=== PATIENT | male | born 1980 | race Caucasian/White ===

== ENCOUNTER 2019-03-24 14:51 | Emergency (ER) | payer MEDICAID ==
[~2019-03-24] VITALS: Ht 175.3 cm; Wt 121.1 kg
[2019-03-24 14:52] VITALS: BP 153/101
[2019-03-24] MEDS ORDERED: KETOROLAC 30 MG/1 ML ONE (15:15)
[2019-03-24] MEDS ORDERED: HYDROcodone/APAP 5/325 TABLET ONE (15:15)
[2019-03-24] MEDS ORDERED: KETOROLAC 30 MG/1 ML IM ONE (15:30)
[2019-03-24] MEDS ORDERED: HYDROcodone/APAP 5/325 TABLET PO ONE (15:30)
[2019-03-24] MEDS ORDERED: ONDANSETRON ODT 4 MG ONE (15:34)
[2019-03-24] MEDS ORDERED: ONDANSETRON ODT 4 MG PO ONE (16:00)
== END 2019-03-24 16:01 | disposition home or self-care (01) ==
LOC: ED 15:46
DX: M16.12 Unilateral primary osteoarthritis, left hip (principal); M25.852 Other specified joint disorders, left hip; Z87.891 Personal history of nicotine dependence
CPT/HCPCS: 73502; 96372; 99283; J1885; Q0162

== ENCOUNTER 2019-03-30 11:46 | Emergency (ER) | payer MEDICAID ==
[~2019-03-30] VITALS: Ht 175.3 cm; Wt 120.0 kg
[2019-03-30 11:52] VITALS: BP 147/99
--- NOTE | 2019-03-30 13:55 | NUR ---
ASSISTANT ATTORNEY GENERAL: PT TO ROOM FROM LOBBY, NO ANSWER
--- NOTE | 2019-03-30 14:10 | NUR ---
FRONT OFFICE ADMINISTRATOR: CALLED FOR ROOM, NO ANSWER
--- NOTE | 2019-03-30 14:32 | NUR ---
GENERAL ROAD SUPERVISOR: CALLED FOR ROOM, NO ANSWER
== END 2019-03-30 14:33 | disposition left against medical advice (07) ==
LOC: ED 14:27
DX: M79.662 Pain in left lower leg (principal); Z53.21 Procedure and treatment not carried out due to patient leaving prior to being seen by health care provider

== ENCOUNTER 2019-04-03 21:15 | Inpatient (IN) | payer MEDICAID ==
[~2019-04-03] VITALS: Ht 175.3 cm; Wt 115.2 kg
--- NOTE | 2019-04-03 22:34 | NUR ---
IV ESTABLISHED, BLOOD CULTURES DRAWN X2.
[2019-04-03 22:43] LABS: MEAN CORPUSCULAR HEMOGLOBIN 29.2 pg (27.5-34.5); MEAN CORPUSCULAR HGB CONC 33.3 g/dL (33.2-36.2); MEAN CORPUSCULAR VOLUME 87.8 fL (81-97); MEAN PLATELET VOLUME 8.1 fL (7.4-10.4); PLATELET COUNT 422 x10^3/uL (130-400); RED BLOOD COUNT 4.53 x10^6/uL (4.38-5.82)
[2019-04-03 22:45] LABS: HCT (SEDRATE) 39.7 % (39.2-51.8)
[2019-04-03 22:54] LABS: ALBUMIN 2.3 g/dL (3.4-5.0); ANION GAP 8 mmol/L (5-15); CALCIUM 8.2 mg/dL (8.5-10.1); CHLORIDE 108 mmol/L (98-107); CREATININE 1.71 mg/dL (0.7-1.3)
[2019-04-03 22:57] LABS: BASOPHILS # (AUTO) 0.06 x10^3/uL (0-0.1); BASOPHILS % (AUTO) 0 % (0-1); EOSINOPHILS # (AUTO) 0.04 x10^3/uL (0-0.4); EOSINOPHILS % (AUTO) 0 % (1-7); LYMPHOCYTES # (AUTO) 1.95 x10^3/uL (1-3.4); LYMPHOCYTES % (AUTO) 10 % (22-44); MD SCAN; MONOCYTES # (AUTO) 1.19 x10^3/uL (0.2-0.8); MONOCYTES % (AUTO) 6 % (2-9); NEUTROPHILS # (AUTO) 16.02 x10^3/uL (1.8-6.8); NEUTROPHILS % (AUTO) 83 % (42-75)
--- NOTE | 2019-04-03 23:18 | NUR ---
PT RESTING ON GURNEY. DENIES ANY NEEDS. OFFERED BLANKET BUT DECLINES, STATES HE IS COMFORTABLE WITH THE SHEET PROVIDED. URINAL PROVIDED. PT STATES IT IS TOO PAINFUL TO WALK. VITALS STABLE. AWAITING LAB RESULTS, PT TO BE ADMITTED.
[2019-04-04] MEDS ORDERED: ONDANSETRON ODT 4 MG PO PRN
[2019-04-04] MEDS ORDERED: BISACODYL 10 MG SUPP PR PRN
[2019-04-04] MEDS ORDERED: hydrALAzine 20 MG/ML, 1ML IVPush PRN
[2019-04-04] MEDS ORDERED: POLYETHYLENE GLYCOL 17 GM PACKET PO PRN
[2019-04-04] MEDS ORDERED: ONDANSETRON 2MG/ML, 2ML IVPush PRN
[2019-04-04] MEDS ORDERED: PROMETHAZINE 25 MG/ML, 1ML IM PRN
[2019-04-04] MEDS ORDERED: DOCUSATE 100 MG CAPSULE PO PRN
--- NOTE | 2019-04-04 00:11 | NUR ---
REPORT RECEIVED, POC DISCUSSED, CARE ASSUMED. PT TO BE ADMITTED. HOSPITALIST AT BEDSIDE FOR ADMISSION ASSESSMENT. ROOM ASSIGNMENT PENDING.
--- NOTE | 2019-04-04 00:22 | NUR ---
REPORT TO AYAKA VERMA. PT TO BE ADMITTED TO ROOM 364. PT UPDATED ON POC.
[2019-04-04 00:51] VITALS: BP 144/96
[2019-04-04] MEDS: SODIUM CHLORIDE 0.9% 1,000 ML IV SCH ×3 (01:15→20:24)
[2019-04-04] MEDS: OXYcodone IR 5MG TABLET PO PRN ×2 (01:15→20:24)
[2019-04-04 01:37] LABS: FREE T4 (FREE THYROXINE) 1.2 ng/dL (0.76-1.46)
[2019-04-04 05:12] LABS: MEAN CORPUSCULAR HEMOGLOBIN 28.8 pg (27.5-34.5); MEAN CORPUSCULAR HGB CONC 32.5 g/dL (33.2-36.2); MEAN CORPUSCULAR VOLUME 88.6 fL (81-97); MEAN PLATELET VOLUME 7.8 fL (7.4-10.4); PLATELET COUNT 433 x10^3/uL (130-400); RED BLOOD COUNT 4.56 x10^6/uL (4.38-5.82); RED CELL DISTRIBUTION WIDTH 13.9 % (9.4-14.8)
[2019-04-04 05:23] LABS: ALBUMIN 2.2 g/dL (3.4-5.0); ANION GAP 6 mmol/L (5-15); CALCIUM 8.3 mg/dL (8.5-10.1); CHLORIDE 112 mmol/L (98-107)
[2019-04-04 05:34] LABS: ALANINE AMINOTRANSFERASE 52 U/L (12-78); ALKALINE PHOSPHATASE 76 U/L (45-117); BILIRUBIN,TOTAL 0.3 mg/dL (0.2-1.0); CHOL/HDL RATIO 5.8; CHOLESTEROL, TOTAL 138 mg/dL (140-239); CREATININE 1.61 mg/dL (0.7-1.3); HDL CHOL % 17 % (26-37); HDL CHOLESTEROL (DIRECT) 24 mg/dL (40-60); LDL CHOLESTEROL,CALCULATED 83 mg/dL (54-169); LDL/HDL RATIO 3.5 (0.5-3.0); TOTAL PROTEIN 6.9 g/dL (6.4-8.2); TRIGLYCERIDES 153 mg/dL (50-200); VLDL CHOLESTEROL 31 mg/dL (0-25)
[2019-04-04 05:43] LABS: BASOPHILS # (AUTO) 0.06 x10^3/uL (0-0.1); BASOPHILS % (AUTO) 0 % (0-1); EOSINOPHILS % (AUTO) 1 % (1-7); LYMPHOCYTES # (AUTO) 2.79 x10^3/uL (1-3.4); LYMPHOCYTES % (AUTO) 14 % (22-44); MD SCAN; MONOCYTES # (AUTO) 1.74 x10^3/uL (0.2-0.8); MONOCYTES % (AUTO) 9 % (2-9); NEUTROPHILS # (AUTO) 15.66 x10^3/uL (1.8-6.8); NEUTROPHILS % (AUTO) 77 % (42-75)
[2019-04-04] MEDS: morphine SULFATE 10 MG/ML, 1ML IVPush PRN ×4 (07:34→23:41)
[2019-04-04 09:26] VITALS: BP 172/98
[2019-04-04] MEDS ORDERED: GADOTERATE 10 MMOL/20 ML SYR ONE (14:17)
[2019-04-04] MEDS ORDERED: LIDOCAINE 1%, 10ML ONE (15:40)
[2019-04-04 15:45] VITALS: BP 162/111
[2019-04-04] MEDS ORDERED: FENTANYL PF 100 MCG/2ML ONE (16:07)
[2019-04-04] MEDS ORDERED: NALOXONE 1 MG/ML, 2ML ONE (16:08)
[2019-04-04] MEDS ORDERED: MIDAZOLAM 1 MG/ML, 5ML ONE (16:08)
[2019-04-04] MEDS ORDERED: FLUMAZENIL 0.1 MG/1 ML, 5ML ONE (16:08)
[2019-04-04 17:30] VITALS: BP 170/127
[2019-04-04] MEDS ORDERED: hydrALAzine 20 MG/ML, 1ML IV PRN ×2 (18:00→22:00)
[2019-04-04 18:29] VITALS: BP 162/108
[2019-04-04] MEDS: CEFTRIAXONE PMX 2GM/50ML 50 ML IV SCH (20:23)
[2019-04-04 20:28] LABS: MICROSCOPIC AUTO
[2019-04-04 20:29] LABS: CULTURE INDICATED? NO
[2019-04-05 01:21] VITALS: BP 165/96
[2019-04-05] MEDS: OXYcodone IR 5MG TABLET PO PRN ×2 (04:37→11:17)
[2019-04-05 05:31] LABS: MEAN CORPUSCULAR HEMOGLOBIN 29.1 pg (27.5-34.5); MEAN CORPUSCULAR HGB CONC 33.4 g/dL (33.2-36.2); MEAN CORPUSCULAR VOLUME 87.3 fL (81-97); MEAN PLATELET VOLUME 8.1 fL (7.4-10.4); PLATELET COUNT 433 x10^3/uL (130-400); RED BLOOD COUNT 4.66 x10^6/uL (4.38-5.82); RED CELL DISTRIBUTION WIDTH 13.9 % (9.4-14.8)
[2019-04-05 05:46] LABS: ANION GAP 6 mmol/L (5-15); CALCIUM 8.8 mg/dL (8.5-10.1); CHLORIDE 107 mmol/L (98-107)
[2019-04-05 05:47] LABS: CREATININE 1.67 mg/dL (0.7-1.3)
[2019-04-05 05:54] LABS: MD YES
[2019-04-05 05:55] LABS: <PLATELET ESTIMATE> ADEQUATE; <PLT MORPHOLOGY> NORMAL PLT MORPH; <RBC MORPHOLOGY> NORMAL; EOS#(MANUAL) 0.19 x10^3/uL (0.0-0.4); EOS% (MANUAL) 1 % (1-7); LYMPH#(MANUAL) 3.59 x10^3/uL (1-3.4); LYMPHS% (MANUAL) 19 % (22-44); MONOS#(MANUAL) 0.95 x10^3/uL (0.3-2.7); MONOS% (MANUAL) 5 % (2-9); SEG#(MANUAL) 14.18 x10^3/uL (1.8-6.8); SEGS% (MANUAL) 75 % (42-75)
[2019-04-05 07:02] VITALS: BP 147/94
[2019-04-05] MEDS: AMLODIPINE 5 MG TABLET PO SCH (08:45)
[2019-04-05] MEDS: SODIUM CHLORIDE 0.9% 1,000 ML IV SCH ×2 (11:12→21:46)
[2019-04-05 12:30] VITALS: BP 143/89
[2019-04-05] MEDS ORDERED: MIDAZOLAM 1 MG/ML, 2ML ONE ×2 (17:24→17:38)
[2019-04-05] MEDS ORDERED: FENTANYL PF 100 MCG/2ML ONE ×2 (17:24→19:02)
[2019-04-05] MEDS ORDERED: FENTANYL PF 250 MCG/5ML ONE (17:40)
[2019-04-05] MEDS ORDERED: SUCCINYLCHOLINE 20 MG/ML, 10ML ONE ×2 (17:41→17:50)
[2019-04-05] MEDS ORDERED: DEXAMETHASONE 4 MG/ML, 1ML ONE ×2 (17:45→17:50)
[2019-04-05] MEDS ORDERED: PROPOFOL 10 MG/ML, 20ML ONE (17:46)
[2019-04-05] MEDS ORDERED: ROCURONIUM 10 MG/ML,10ML ONE (17:50)
[2019-04-05] MEDS ORDERED: ONDANSETRON 2MG/ML, 2ML ONE (17:50)
[2019-04-05] MEDS ORDERED: ACETAMINOPHEN 325 MG TABLET PO PRN (19:00)
[2019-04-05] MEDS ORDERED: MEPERIDINE/PF 25MG/ML,1ML IVPush PRN (19:00)
[2019-04-05] MEDS ORDERED: ONDANSETRON 2MG/ML, 2ML IV PRN (19:00)
[2019-04-05] MEDS ORDERED: hydrALAzine 20 MG/ML, 1ML IV PRN (19:00)
[2019-04-05] MEDS ORDERED: MIDAZOLAM 1 MG/ML, 2ML IV PRN (19:00)
[2019-04-05] MEDS ORDERED: PROMETHAZINE 12.5 MG SUPP PR PRN (19:00)
[2019-04-05] MEDS ORDERED: ALBUTEROL SULFATE 2.5 MG/3 ML NPPB PRN (19:00)
[2019-04-05] MEDS ORDERED: DIAZEPAM 5 MG/ML, 2ML IVPush PRN (19:00)
[2019-04-05] MEDS ORDERED: ONDANSETRON ODT 8 MG PO PRN (19:00)
[2019-04-05] MEDS ORDERED: EPHEDRINE 50 MG/ML, 1ML IVPush PRN (19:00)
[2019-04-05] MEDS ORDERED: HALOPERIDOL 5 MG/ML IV PRN (19:00)
[2019-04-05] MEDS ORDERED: PROMETHAZINE 25 MG/ML, 1ML IV PRN (19:00)
[2019-04-05] MEDS ORDERED: OXYcodone 5 MG/5 ML ORAL.SOL UDC PO PRN (19:00)
[2019-04-05] MEDS ORDERED: LABETALOL 5MG/ML, 20ML IV PRN (19:00)
[2019-04-05] MEDS ORDERED: OXYcodone 5 MG/5 ML ORAL.SOL UDC ONE (19:02)
[2019-04-05] MEDS: FENTANYL PF 100 MCG/2ML IV PRN ×2 (19:06→19:56)
[2019-04-05] MEDS ORDERED: LABETALOL 5MG/ML, 20ML ONE (19:16)
[2019-04-05] MEDS ORDERED: HYDROmorphone 1 MG/ML, 1ML INJ ONE (19:16)
[2019-04-05] MEDS: HYDROmorphone 2 MG/ML, 1ML IVPush PRN ×2 (19:19→19:29)
[2019-04-05] MEDS ORDERED: hydrALAzine 20 MG/ML, 1ML ONE (19:45)
[2019-04-05] MEDS ORDERED: MEPERIDINE/PF 25MG/ML,1ML ONE (20:12)
[2019-04-05 20:43] VITALS: BP 143/83
[2019-04-05] MEDS: CEFTRIAXONE PMX 2GM/50ML 50 ML IV SCH (21:46)
[2019-04-05] MEDS: morphine SULFATE 10 MG/ML, 1ML IVPush PRN (22:09)
[2019-04-06 01:00] VITALS: BP 139/98
[2019-04-06] MEDS: SODIUM CHLORIDE 0.9% 1,000 ML IV SCH (03:00)
[2019-04-06 05:15] LABS: BASOPHILS % (AUTO) 1 % (0-1); EOSINOPHILS # (AUTO) 0.01 x10^3/uL (0-0.4); EOSINOPHILS % (AUTO) 0 % (1-7); LYMPHOCYTES # (AUTO) 0.88 x10^3/uL (1-3.4); LYMPHOCYTES % (AUTO) 5 % (22-44); MD NO; MEAN CORPUSCULAR HEMOGLOBIN 29.4 pg (27.5-34.5); MEAN CORPUSCULAR HGB CONC 33.8 g/dL (33.2-36.2); MEAN CORPUSCULAR VOLUME 87.1 fL (81-97); MEAN PLATELET VOLUME 8.1 fL (7.4-10.4); MONOCYTES # (AUTO) 0.48 x10^3/uL (0.2-0.8); MONOCYTES % (AUTO) 3 % (2-9); NEUTROPHILS # (AUTO) 16.12 x10^3/uL (1.8-6.8); NEUTROPHILS % (AUTO) 92 % (42-75); PLATELET COUNT 452 x10^3/uL (130-400); RED BLOOD COUNT 4.66 x10^6/uL (4.38-5.82); RED CELL DISTRIBUTION WIDTH 13.5 % (9.4-14.8)
[2019-04-06 05:29] LABS: ANION GAP 6 mmol/L (5-15); CALCIUM 8.8 mg/dL (8.5-10.1); CHLORIDE 104 mmol/L (98-107); CREATININE 1.82 mg/dL (0.7-1.3)
[2019-04-06] MEDS: OXYcodone IR 5MG TABLET PO PRN ×2 (05:29→20:41)
[2019-04-06 07:02] VITALS: BP 155/84
[2019-04-06] MEDS: AMLODIPINE 5 MG TABLET PO SCH (09:34)
[2019-04-06] MEDS: HEPARIN 5,000 UNITS/ML, 1ML SQ SCH ×2 (09:35→16:34)
[2019-04-06 13:34] VITALS: BP 152/91
[2019-04-06 18:44] VITALS: BP 144/78
[2019-04-06] MEDS: CEFTRIAXONE PMX 2GM/50ML 50 ML IV SCH (20:22)
[2019-04-07] MEDS: HEPARIN 5,000 UNITS/ML, 1ML SQ SCH ×3 (00:36→18:02)
[2019-04-07 00:57] VITALS: BP 134/87
[2019-04-07 06:00] LABS: BASOPHILS # (AUTO) 0.07 x10^3/uL (0-0.1); BASOPHILS % (AUTO) 0 % (0-1); EOSINOPHILS # (AUTO) 0.12 x10^3/uL (0-0.4); EOSINOPHILS % (AUTO) 1 % (1-7); LYMPHOCYTES # (AUTO) 2.16 x10^3/uL (1-3.4); LYMPHOCYTES % (AUTO) 12 % (22-44); MD NO; MEAN CORPUSCULAR HEMOGLOBIN 29.3 pg (27.5-34.5); MEAN CORPUSCULAR HGB CONC 33.5 g/dL (33.2-36.2); MEAN CORPUSCULAR VOLUME 87.4 fL (81-97); MEAN PLATELET VOLUME 8.5 fL (7.4-10.4); MONOCYTES # (AUTO) 1.01 x10^3/uL (0.2-0.8); MONOCYTES % (AUTO) 6 % (2-9); NEUTROPHILS # (AUTO) 14.51 x10^3/uL (1.8-6.8); NEUTROPHILS % (AUTO) 81 % (42-75); PLATELET COUNT 464 x10^3/uL (130-400); RED BLOOD COUNT 4.59 x10^6/uL (4.38-5.82); RED CELL DISTRIBUTION WIDTH 13.4 % (9.4-14.8)
[2019-04-07 06:07] LABS: ANION GAP 8 mmol/L (5-15); CHLORIDE 105 mmol/L (98-107); CREATININE 1.47 mg/dL (0.7-1.3)
[2019-04-07] MEDS: OXYcodone IR 5MG TABLET PO PRN ×3 (06:28→20:34)
[2019-04-07] MEDS: AMLODIPINE 5 MG TABLET PO SCH (09:19)
[2019-04-07 09:36] VITALS: BP 150/82
[2019-04-07 13:25] VITALS: BP 142/94
[2019-04-07] MEDS: CEFTRIAXONE PMX 2GM/50ML 50 ML IV SCH (19:53)
[2019-04-07 20:27] VITALS: BP 149/99
[2019-04-08 01:57] VITALS: BP 139/92
[2019-04-08] MEDS: HEPARIN 5,000 UNITS/ML, 1ML SQ SCH ×3 (02:03→18:18)
[2019-04-08] MEDS: ACETAMINOPHEN 325 MG TABLET PO PRN (04:02)
[2019-04-08 06:46] VITALS: BP 151/101
[2019-04-08 07:17] LABS: MEAN CORPUSCULAR HEMOGLOBIN 29.2 pg (27.5-34.5); MEAN CORPUSCULAR VOLUME 88.5 fL (81-97); MEAN PLATELET VOLUME 7.6 fL (7.4-10.4); PLATELET COUNT 498 x10^3/uL (130-400); RED BLOOD COUNT 4.84 x10^6/uL (4.38-5.82); RED CELL DISTRIBUTION WIDTH 13.8 % (9.4-14.8)
[2019-04-08 07:53] LABS: BASOPHILS # (AUTO) 0.03 x10^3/uL (0-0.1); BASOPHILS % (AUTO) 0 % (0-1); EOSINOPHILS # (AUTO) 0.24 x10^3/uL (0-0.4); EOSINOPHILS % (AUTO) 2 % (1-7); LYMPHOCYTES # (AUTO) 3.08 x10^3/uL (1-3.4); LYMPHOCYTES % (AUTO) 24 % (22-44); MD SCAN; MONOCYTES # (AUTO) 0.83 x10^3/uL (0.2-0.8); MONOCYTES % (AUTO) 6 % (2-9); NEUTROPHILS # (AUTO) 8.75 x10^3/uL (1.8-6.8); NEUTROPHILS % (AUTO) 68 % (42-75)
[2019-04-08] MEDS: AMLODIPINE 5 MG TABLET PO SCH (08:46)
[2019-04-08 12:38] VITALS: BP 154/103
[2019-04-08] MEDS: OXYcodone IR 5MG TABLET PO PRN ×2 (15:11→20:10)
[2019-04-08] MEDS: CEFTRIAXONE PMX 2GM/50ML 50 ML IV SCH (20:10)
[2019-04-08 20:24] VITALS: BP 142/84
[2019-04-09 00:38] VITALS: BP 149/92
[2019-04-09] MEDS: OXYcodone IR 5MG TABLET PO PRN ×5 (02:19→22:36)
[2019-04-09] MEDS: HEPARIN 5,000 UNITS/ML, 1ML SQ SCH ×3 (02:20→18:19)
[2019-04-09 04:57] LABS: BASOPHILS # (AUTO) 0.06 x10^3/uL (0-0.1); BASOPHILS % (AUTO) 1 % (0-1); EOSINOPHILS # (AUTO) 0.27 x10^3/uL (0-0.4); EOSINOPHILS % (AUTO) 2 % (1-7); LYMPHOCYTES # (AUTO) 2.83 x10^3/uL (1-3.4); LYMPHOCYTES % (AUTO) 23 % (22-44); MD NO; MEAN CORPUSCULAR HGB CONC 33.2 g/dL (33.2-36.2); MEAN CORPUSCULAR VOLUME 87.4 fL (81-97); MEAN PLATELET VOLUME 7.7 fL (7.4-10.4); MONOCYTES # (AUTO) 1.04 x10^3/uL (0.2-0.8); MONOCYTES % (AUTO) 8 % (2-9); NEUTROPHILS # (AUTO) 8.35 x10^3/uL (1.8-6.8); NEUTROPHILS % (AUTO) 67 % (42-75); PLATELET COUNT 448 x10^3/uL (130-400); RED BLOOD COUNT 4.74 x10^6/uL (4.38-5.82); RED CELL DISTRIBUTION WIDTH 13.7 % (9.4-14.8)
[2019-04-09 04:58] LABS: HCT (SEDRATE) 41.4 % (39.2-51.8)
[2019-04-09 05:05] LABS: CHLORIDE 102 mmol/L (98-107)
[2019-04-09 05:20] LABS: ALANINE AMINOTRANSFERASE 66 U/L (12-78); ALBUMIN 2.5 g/dL (3.4-5.0); ALKALINE PHOSPHATASE 79 U/L (45-117); ANION GAP 6 mmol/L (5-15); BILIRUBIN,TOTAL 0.4 mg/dL (0.2-1.0); CALCIUM 8.7 mg/dL (8.5-10.1); CREATININE 1.18 mg/dL (0.7-1.3)
[2019-04-09 07:48] VITALS: BP 122/82
[2019-04-09] MEDS: AMLODIPINE 5 MG TABLET PO SCH (12:22)
[2019-04-09 12:42] VITALS: BP 130/84
[2019-04-09] MEDS: CEFTRIAXONE PMX 2GM/50ML 50 ML IV SCH (20:42)
[2019-04-09 20:53] VITALS: BP 136/90
[2019-04-10 01:44] VITALS: BP 153/81
[2019-04-10] MEDS: HEPARIN 5,000 UNITS/ML, 1ML SQ SCH ×3 (01:49→18:00)
[2019-04-10] MEDS: OXYcodone IR 5MG TABLET PO PRN ×3 (06:14→19:45)
[2019-04-10 08:11] VITALS: BP 146/89
[2019-04-10] MEDS: AMLODIPINE 5 MG TABLET PO SCH (09:01)
[2019-04-10] MEDS: ACETAMINOPHEN 325 MG TABLET PO PRN (09:06)
[2019-04-10 11:05] LABS: BASOPHILS # (AUTO) 0.09 x10^3/uL (0-0.1); BASOPHILS % (AUTO) 1 % (0-1); EOSINOPHILS # (AUTO) 0.27 x10^3/uL (0-0.4); EOSINOPHILS % (AUTO) 2 % (1-7); LYMPHOCYTES # (AUTO) 2.72 x10^3/uL (1-3.4); LYMPHOCYTES % (AUTO) 23 % (22-44); MD NO; MEAN CORPUSCULAR HEMOGLOBIN 29.2 pg (27.5-34.5); MEAN CORPUSCULAR HGB CONC 33.6 g/dL (33.2-36.2); MEAN CORPUSCULAR VOLUME 87.1 fL (81-97); MEAN PLATELET VOLUME 7.4 fL (7.4-10.4); MONOCYTES # (AUTO) 0.84 x10^3/uL (0.2-0.8); MONOCYTES % (AUTO) 7 % (2-9); NEUTROPHILS % (AUTO) 66 % (42-75); PLATELET COUNT 442 x10^3/uL (130-400); RED BLOOD COUNT 4.73 x10^6/uL (4.38-5.82); RED CELL DISTRIBUTION WIDTH 13.2 % (9.4-14.8)
[2019-04-10 16:27] VITALS: BP 135/89
[2019-04-10 19:19] VITALS: BP 132/84
[2019-04-10] MEDS: CEFTRIAXONE PMX 2GM/50ML 50 ML IV SCH (19:43)
[2019-04-11 00:06] VITALS: BP 155/95
[2019-04-11] MEDS: OXYcodone IR 5MG TABLET PO PRN ×4 (02:04→14:58)
[2019-04-11] MEDS: HEPARIN 5,000 UNITS/ML, 1ML SQ SCH ×2 (02:05→10:22)
[2019-04-11 05:34] LABS: BASOPHILS # (AUTO) 0.13 x10^3/uL (0-0.1); BASOPHILS % (AUTO) 1 % (0-1); EOSINOPHILS # (AUTO) 0.29 x10^3/uL (0-0.4); EOSINOPHILS % (AUTO) 2 % (1-7); LYMPHOCYTES # (AUTO) 2.95 x10^3/uL (1-3.4); LYMPHOCYTES % (AUTO) 23 % (22-44); MD NO; MEAN CORPUSCULAR HEMOGLOBIN 29.4 pg (27.5-34.5); MEAN CORPUSCULAR HGB CONC 33.7 g/dL (33.2-36.2); MEAN CORPUSCULAR VOLUME 87.2 fL (81-97); MEAN PLATELET VOLUME 8.1 fL (7.4-10.4); MONOCYTES # (AUTO) 0.78 x10^3/uL (0.2-0.8); MONOCYTES % (AUTO) 6 % (2-9); NEUTROPHILS # (AUTO) 8.72 x10^3/uL (1.8-6.8); NEUTROPHILS % (AUTO) 68 % (42-75); PLATELET COUNT 408 x10^3/uL (130-400); RED CELL DISTRIBUTION WIDTH 13.2 % (9.4-14.8)
[2019-04-11 07:11] VITALS: BP 128/78
[2019-04-11] MEDS: AMLODIPINE 5 MG TABLET PO SCH (10:21)
[2019-04-11 12:28] VITALS: BP 126/81
[2019-04-11] MEDS ORDERED: DOCU100C33 PO (12:42)
[2019-04-11] MEDS ORDERED: AMLO-150 PO (12:42)
[2019-04-11] MEDS ORDERED: OXYC5TAB3 PO (12:42)
[2019-04-11] MEDS: CEFTRIAXONE PMX 2GM/50ML 50 ML IV SCH (14:58)
== END 2019-04-11 17:10 | disposition home or self-care (01) | DRG 480 ==
LOC: ED 22:23 → EDIP 23:41 → 3N 04-04 00:44 → DCLOUNGE 04-11 16:55
PROVIDERS: ADMIT Internal Medicine; ATTEND Hospitalist
PROC: 0K9R30Z Drainage of Left Upper Leg Muscle with Drainage Device, Percutaneous Approach (ICD-10-PCS; 2019-04-04)
PROC: 0SBB0ZZ Excision of Left Hip Joint, Open Approach (ICD-10-PCS; principal; 2019-04-05 17:00)
PROC: 02HV33Z Insertion of Infusion Device into Superior Vena Cava, Percutaneous Approach (ICD-10-PCS; 2019-04-09)
PROC: B5181ZA Fluoroscopy of Superior Vena Cava using Low Osmolar Contrast, Guidance (ICD-10-PCS; 2019-04-09)
PROC: B548ZZA Ultrasonography of Superior Vena Cava, Guidance (ICD-10-PCS; 2019-04-09)
DX: A54.42 Gonococcal arthritis (principal); K68.12 Psoas muscle abscess; N17.0 Acute kidney failure with tubular necrosis; E44.0 Moderate protein-calorie malnutrition; E66.9 Obesity, unspecified; I12.9 Hypertensive chronic kidney disease with stage 1 through stage 4 chronic kidney disease, or unspecified chronic kidney disease; N18.9 Chronic kidney disease, unspecified; E88.81 Metabolic syndrome and other insulin resistance; M16.12 Unilateral primary osteoarthritis, left hip; Z80.9 Family history of malignant neoplasm, unspecified; Z87.891 Personal history of nicotine dependence; Z82.49 Family history of ischemic heart disease and other diseases of the circulatory system; Z98.52 Vasectomy status; Z79.899 Other long term (current) drug therapy; Z68.37 Body mass index [BMI] 37.0-37.9, adult
CPT/HCPCS: 36415; 84145; 87806; 96374; 96375; 99285; J3490; 36573; 49406; 71045; 76775; 80048; 80053; 80061; 81001; 82040; 83036; 83605; 83735; 84439; 84443; 85025; 85651; 86140; 87040; 87070; 87075; 87205; 87491; 87591; 93306; 99156; 99157; G0378; J0696; J1100; J1170; J1644; J2250; J2405; J2704; J3010; A9575; C1729; C1751; C1769; G0475; J0330; J0360; J2175; J2270; J2310; J7030

== ENCOUNTER → 2019-05-01 | Outpatient (CLI) | payer MEDICAID ==
[~2019-05-01] MED LIST: AMLO-150 PO; DOCU100C33 PO; GADOTERATE 7.5 MMOL/15 ML SYR ONE; OXYC5TAB3 PO
== END | disposition home or self-care (01) ==
LOC: CFH 12:57
PROVIDERS: ATTEND Internal Medicine Infectious Disease
DX: M25.452 Effusion, left hip (principal)
CPT/HCPCS: 73723; A9575